=== PATIENT | female | born 1950 | race American Indian/Alaskan Native ===

== ENCOUNTER 2017-11-08 08:19 | Outpatient (CLI) | payer MEDICARE ==
--- NOTE | 2017-11-08 11:18 | Mammography Report ---
BONE DEXA:11/08/17 08:19:00 CLINICAL: Postmenopausal. No comparison. TECHNIQUE: Two site bone DEXA performed on an Hologic scanner. FINDINGS: The average BMD of the lumbar spine L1-L4 is 0.982g/cm squared with a T-score of -0.6 and a Z-score of +1.2. The average BMD of the left hip is 0.952g/cm squared with a T-score of +0.1 and a Z-score of +1.1. IMPRESSION: WHO classification: Normal with average fracture risk based on spine and left hip measurements. RECOMMENDATION: Clinical correlation and routine screening. DEFINITIONS: BMD = Bone Mineral Density T-score = BMD related to mean peak bone mass of young adult (mean expressed in Standard Deviation) Z-score = Age matched BMD expressed in SD World Health Organization (WHO) Diagnostic Criteria Normal T-score > -1 SD Osteopenia T-score between -1 and -2.4 SD Osteoporosis T-score -2.5 SD or below NOTE: BMD is not the only risk factor for fracture. One should also consider factors such as the patient's age, risk of falling, previous osteoporotic fracture, family history of osteoporotic fractures, current smoker, and low body weight. Z-scores are not calculated if >80 years of age.
--- NOTE | 2017-11-08 13:25 | Mammography Report ---
Bilateral mammogram: No previous studies available. CAD study utilized. Findings: Predominance of adipose tissue bilaterally. Circumscribed 4 mm density 6:00 position left breast. Focal asymmetry upper outer anterior right breast. No microcalcifications. Benign axilla. Impression: Circumscribed density left breast. Focal ill-defined asymmetry upper outer anterior right breast. Comparison with previous studies is recommended. If previous studies are not available, spot mag and if necessary, sonographic examination advised.
== END 2017-11-08 08:20 | disposition home or self-care (01) ==
LOC: MAMMO 08:19
PROVIDERS: ATTEND Advanced Practice Midwife
DX: Z12.31 Encounter for screening mammogram for malignant neoplasm of breast (principal); N95.8 Other specified menopausal and perimenopausal disorders; Z78.0 Asymptomatic menopausal state
CPT/HCPCS: 77067; 77080

== ENCOUNTER 2018-01-29 07:39 | Emergency (ER) | payer MEDICARE ==
[2018-01-29 08:45] LABS: Basophils # (Auto) 0.1 K/mm3 (0.0-0.1); Basophils % (Auto) 0.9 % (0.0-1.8); Eosinophils % (Auto) 0.7 % (0.0-4.3); Hematocrit 35.2 % (30.3-42.9); Hemoglobin 11.6 gm/dl (10.1-14.3); Lymphocytes # (Auto) 3.1 K/mm3 (1.2-5.4); Lymphocytes % (Auto) 41.2 % (13.4-35.0); Mean Corpuscular HGB Conc 33 % (30-34); Mean Corpuscular Hemoglobin 31 pg (28-32); Mean Corpuscular Volume 93 fl (79-97); Monocytes # (Auto) 0.8 K/mm3 (0.0-0.8); Monocytes % (Auto) 11.2 % (0.0-7.3); Platelet Count 198 K/mm3 (140-440); Red Blood Count 3.77 M/mm3 (3.65-5.03); Red Cell Distribution Width 14.1 % (13.2-15.2)
[2018-01-29] MEDS ORDERED: NACL 0.9% 500 ML 500 ML IV ONE (08:53)
[2018-01-29] MEDS ORDERED: DILAUDID IV ONE (08:53)
[2018-01-29 08:55] LABS: BUN/Creatinine Ratio 23; Blood Urea Nitrogen 18 mg/dL (7-17); Calcium 9.6 mg/dL (8.4-10.2); Hemolysis Index 9
--- NOTE | 2018-01-29 08:55 | Emergency Department Report ---
ED General Adult HPI - General Chief complaint: Chest Pain Stated complaint: LFT ARM PAIN Time Seen by Provider: 01/29/18 08:25 Source: patient, family, EMS (ems notes not available at time of chart dictation), RN notes reviewed Mode of arrival: Wheelchair Limitations: No Limitations - History of Present Illness Initial comments: This is a 67-year-old female who is not known to this provider previously. Her primary care doctor is Dr. Otero. She reports a history of chronic left arm pain for the past 3 months, diabetes. Patient reports being admitted to [facility] 9 weeks ago for chest pain. She also reports that 3 weeks ago, she was admitted to [facility] in [place] for chest pain, and had a cardiac catheterization which was reported as negative. The patient presents to the ER today with a primary complaint of nontraumatic left arm pain. The arm pain is burning and sharp, and in the left elbow and in the left wrist. It increases with palpation and decreases with rest. She reports her primary care doctor has tried numerous medications, including steroids, Tylenol 3 and NSAIDs. Her pain has not improved. She reports it is typically in her left wrist and left elbow. It's also a little bit in her left shoulder. She reports that she had to do a lot of heavy lifting recently for a sick family member, and subsequently developed anterior chest wall pain. She also endorses anterior chest wall pain which has been present for weeks, and it does not radiate to the back, arms or neck. To me she endorses that her chest pain is improved, and she denies new or different shortness of breath as well as vomiting, diaphoresis. She also endorses intermittent right lower quadrant and right-sided inguinal pain, which is improved, but present for weeks. She denies focal extremity weakness, numbness, bladder or bowel retention or incontinence as well as ataxia. She also feels like she's been having a pop in her elbow. -: Gradual Location: chest, abdomen, right, upper extremity Quality: aching Consistency: intermittent Improves with: rest Worsens with: movement Associated Symptoms: chest pain, malaise, shortness of breath, weakness. denies : cough, diaphoresis, fever/chills, headaches, loss of appetite, nausea/vomiting , rash, seizure, syncope - Related Data Previous Rx's Medication Instructions Recorded Last Taken Type Acetaminophen [Tylenol Arthritis] 650 mg PO Q6HR PRN #30 tablet.er 01/29/18 Unknown Rx Ibuprofen [Motrin] 600 mg PO Q8H PRN #30 tablet 01/29/18 Unknown Rx oxyCODONE [Roxicodone] 5 mg PO Q6HR PRN #20 tablet 01/29/18 Unknown Rx Allergies Allergy/AdvReac Type Severity Reaction Status Date / Time Penicillins AdvReac Hives Unverified 11/08/17 08:19 ED Review of Systems ROS: Stated complaint: LFT ARM PAIN Other details as noted in HPI Constitutional: malaise Eyes: denies: eye discharge ENT: denies: congestion Cardiovascular: chest pain Gastrointestinal: abdominal pain Genitourinary: denies: dysuria Musculoskeletal: arthralgia, myalgia Skin: denies: lesions Neurological: weakness Psychiatric: anxiety ED Past Medical Hx - Past Medical History Previous Medical History?: Yes Hx Hypertension: Yes Hx Diabetes: Yes (pre dm) - Surgical History Past Surgical History?: Yes Additional Surgical History: x 1 - Social History Smoking Status: Never Smoker Substance Use Type: None - Medications Home Medications: Home Medications Medication Instructions Recorded Confirmed Last Taken Type Acetaminophen [Tylenol Arthritis] 650 mg PO Q6HR PRN #30 tablet.er 01/29/18 Unknown Rx Ibuprofen [Motrin] 600 mg PO Q8H PRN #30 tablet 01/29/18 Unknown Rx oxyCODONE [Roxicodone] 5 mg PO Q6HR PRN #20 tablet 01/29/18 Unknown Rx ED Physical Exam - General Limitations: Physical Limitation General appearance: alert, anxious - Head Head exam: Present: atraumatic, normocephalic - Eye Eye exam: Present: normal appearance, EOMI. Absent: nystagmus - ENT ENT exam: Present: normal exam, normal orophraynx, mucous membranes moist, normal external ear exam - Neck Neck exam: Present: normal inspection, full ROM - Respiratory Respiratory exam: Present: normal lung sounds bilaterally, chest wall tenderness , other (escorted by nurse Julissa Hedrick). Absent: respiratory distress - Cardiovascular Cardiovascular Exam: Present: regular rate, normal rhythm, normal heart sounds. Absent: bradycardia, tachycardia, irregular rhythm, systolic murmur, diastolic murmur, rubs, gallop - GI/Abdominal GI/Abdominal exam: Present: soft, normal bowel sounds. Absent: distended, tenderness, guarding, rebound, rigid, pulsatile mass - Extremities Exam Extremities exam: Present: normal inspection, tenderness, normal capillary refill, other (2+ pulses noted in the bilateral upper, lower extremities. There is reproducible bony tenderness of the left shoulder, left elbow, left olecranon, and left wrist. Compartments soft, there is no redness, pus, streaking. Thumb opposition, finger abduction, adduction, finger extension, flexion intact in the bilateral upper extremities. Range of motion limited in the left elbow and left shoulder secondary to pain. Compartments soft.). Absent: pedal edema, joint swelling, calf tenderness - Back Exam Back exam: Present: normal inspection, full ROM. Absent: tenderness, CVA tenderness (R), paraspinal tenderness, vertebral tenderness - Neurological Exam Neurological exam: Present: alert, oriented X3, CN II-XII intact, normal gait, other (Extraocular movements intact. Tongue midline. No facial droop. Facial sensation intact to light touch in the V1, V2, V3 distribution bilaterally. 5 and 5 strength in 4 extremities.. Sensation is intact to light touch in 4 extremities.). Absent: motor sensory deficit - Psychiatric Psychiatric exam: Present: anxious - Skin Skin exam: Present: warm, dry, intact, normal color. Absent: rash ED Course Vital Signs 01/29/18 01/29/18 01/29/18 07:56 08:10 08:16 Temperature 97.6 F 98.1 F Pulse Rate 97 H 84 89 Respiratory 18 14 11 L Rate Blood Pressure 167/84 167/77 Blood Pressure 137/79 [Right] O2 Sat by Pulse 97 98 Oximetry 01/29/18 01/29/18 01/29/18 08:30 08:46 09:15 Temperature Pulse Rate 80 100 H Respiratory 16 19 18 Rate Blood Pressure 167/77 167/77 Blood Pressure [Right] O2 Sat by Pulse 98 Oximetry 01/29/18 09:45 Temperature Pulse Rate Respiratory 18 Rate Blood Pressure Blood Pressure [Right] O2 Sat by Pulse Oximetry - Reevaluation(s) Reevaluation #1: 01/29/18 10:35 Differential diagnosis, including without limited to: Arthritis, rheumatoid arthritis, fibromyalgia, acute coronary syndrome, pneumonia, pulmonary embolus, intra-abdominal infection, urinary tract infection, constipation Assessment and plan: 67-year-old female with a primary complaint of nontraumatic left arm pain. It has been present for 3 months. It is reproducible. Compartments are soft, there is no redness, pus, streaking, distal range of motion intact in the fingers, and x-ray of the left elbow and left wrist show no obvious fracture or dislocation. Patient by history is low risk by NESTOR score, heart score, given weeks of symptoms, as well as a recent reported negative cardiac catheterization, we are attempting to obtain patient's catheterization report from [facility]. Patient's pain was treated initially with hydromorphone which she indicates did not improve her pain. Right groin exam is unremarkable, with no pulsatile mass, no hematoma, escorted by nurse Julissa Bennett Patient will be given a sub-dissociative dose of ketamine, we will obtain CT scan of her chest given her positive d-dimer, CT scan of her abdomen pelvis and reassess. Troponin #2 is pending, EKG #2 is pending. Reevaluation #2: 01/29/18 10:41 Cardiac catheterization report is reviewed. It was performed on 12/25/2017. The left main coronary artery had distal 20-30% luminal irregularities. There was no significant occlusive disease noted in the right coronary artery. "No critical coronary artery occlusive disease." Recommended aggressive medical management, and from a cardiac standpoint, no further cardiac workup. Leather Scraper recommended a noncardiac chest pain workup. Reevaluation #3: 01/29/18 12:16 EKG is unremarkable 2. Troponin negative 2. CT scan of the chest, abdomen, pelvis negative for acute disease. X-ray of the elbow and left humerus demonstrated pathologic left-sided distal humerus fracture. Patient required ketamine, 25 mg IV 2 for pain control. She reports this greatly improved her pain. Patient will be placed in a posterior splint, placed in a left arm sling , and she will be given referral to outpatient orthopedics. 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 ED Medical Decision Making - Lab Data Result diagrams: 01/29/18 08:24 01/29/18 08:21 Vital Signs 01/29/18 01/29/18 01/29/18 07:56 08:10 08:16 Temperature 97.6 F 98.1 F Pulse Rate 97 H 84 89 Respiratory 18 14 11 L Rate Blood Pressure 167/84 167/77 Blood Pressure 137/79 [Right] O2 Sat by Pulse 97 98 Oximetry 01/29/18 01/29/18 01/29/18 08:30 08:46 09:15 Temperature Pulse Rate 80 100 H Respiratory 16 19 18 Rate Blood Pressure 167/77 167/77 Blood Pressure [Right] O2 Sat by Pulse 98 Oximetry Lab Results 01/29/18 01/29/18 01/29/18 Range/Units 08:21 08:24 09:05 WBC 7.4 (4.5-11.0) K/mm3 RBC 3.77 (3.65-5.03) M/mm3 Hgb 11.6 (10.1-14.3) gm/dl Hct 35.2 (30.3-42.9) % MCV 93 (79-97) fl MCH 31 (28-32) pg MCHC 33 (30-34) % RDW 14.1 (13.2-15.2) % Plt Count 198 (140-440) K/mm3 Lymph % (Auto) 41.2 H (13.4-35.0) % Cataño % (Auto) 11.2 H (0.0-7.3) % Eos % (Auto) 0.7 (0.0-4.3) % Baso % (Auto) 0.9 (0.0-1.8) % Lymph # 3.1 (1.2-5.4) K/mm3 Cataño # 0.8 (0.0-0.8) K/mm3 Eos # 0.0 (0.0-0.4) K/mm3 Baso # 0.1 (0.0-0.1) K/mm3 Seg Neutrophils % 46.0 (40.0-70.0) % Seg Neutrophils # 3.4 (1.8-7.7) K/mm3 PT 13.2 (12.2-14.9) Sec. INR 0.95 (0.87-1.13) APTT 20.0 L (24.2-36.6) Sec. D-Dimer 1309.25 H (0-234) ng/mlDDU Sodium 138 (137-145) mmol/L Potassium 4.4 (3.6-5.0) mmol/L Chloride 100.4 (98-107) mmol/L Carbon Dioxide 23 (22-30) mmol/L Anion Gap 19 mmol/L BUN 18 H (7-17) mg/dL Creatinine 0.8 (0.7-1.2) mg/dL Estimated GFR > 60 ml/min BUN/Creatinine Ratio 23 % Glucose 121 H (65-100) mg/dL Calcium 9.6 (8.4-10.2) mg/dL Magnesium (1.7-2.3) mg/dL Total Bilirubin (0.1-1.2) mg/dL Direct Bilirubin (0-0.2) mg/dL Indirect Bilirubin mg/dL AST (5-40) units/L ALT (7-56) units/L Alkaline Phosphatase (35-129) units/L Total Creatine Kinase (30-135) units/L Troponin T < 0.010 (0.00-0.029) ng/mL Total Protein (6.3-8.2) g/dL Albumin (3.9-5) g/dL Albumin/Globulin Ratio % Lipase (13-60) units/L //18 Range/Units 09:05 WBC (4.5-11.0) K/mm3 RBC (3.65-5.03) M/mm3 Hgb (10.1-14.3) gm/dl Hct (30.3-42.9) % MCV (79-97) fl MCH (28-32) pg MCHC (30-34) % RDW (13.2-15.2) % Plt Count (140-440) K/mm3 Lymph % (Auto) (13.4-35.0) % Cataño % (Auto) (0.0-7.3) % Eos % (Auto) (0.0-4.3) % Baso % (Auto) (0.0-1.8) % Lymph # (1.2-5.4) K/mm3 Cata[place] # (0.0-0.8) K/mm3 Eos # (0.0-0.4) K/mm3 Baso # (0.0-0.1) K/mm3 Seg Neutrophils % (40.0-70.0) % Seg Neutrophils # (1.8-7.7) K/mm3 PT (12.2-14.9) Sec. INR (0.87-1.13) APTT (24.2-36.6) Sec. D-Dimer (0-234) ng/mlDDU Sodium (137-145) mmol/L Potassium (3.6-5.0) mmol/L Chloride (98-107) mmol/L Carbon Dioxide (22-30) mmol/L Anion Gap mmol/L BUN (7-17) mg/dL Creatinine (0.7-1.2) mg/dL Estimated GFR ml/min BUN/Creatinine Ratio % Glucose (65-100) mg/dL Calcium (8.4-10.2) mg/dL Magnesium 1.90 (1.7-2.3) mg/dL Total Bilirubin 0.20 (0.1-1.2) mg/dL Direct Bilirubin < 0.2 (0-0.2) mg/dL Indirect Bilirubin 0.0 mg/dL AST 25 (5-40) units/L ALT 19 (7-56) units/L Alkaline Phosphatase 51 (35-129) units/L Total Creatine Kinase 36 (30-135) units/L Troponin T (0.00-0.029) ng/mL Total Protein 8.5 H (6.3-8.2) g/dL Albumin 4.0 (3.9-5) g/dL Albumin/Globulin Ratio 0.9 % Lipase 57 (13-60) units/L - EKG Data -: EKG Interpreted by Me - EKG Data When compared to previous EKG there are: previous EKG unavailable 01/29/18 10:38 Sinus, 72 bpm, normal intervals, normal axis, poor R wave progression, abnormal EKG, not morphologically consistent with ST elevation myocardial infarction. - Radiology Data Radiology results: report reviewed, image reviewed interpreted by me: X-ray of the chest is negative. X-ray of the left elbow was negative. X-ray of the left wrist is negative. Critical care attestation.: If time is entered above; I have spent that time in minutes in the direct care of this critically ill patient, excluding procedure time. ED Disposition Clinical Impression: Chest pain, Abdominal pain Fracture, humerus Qualifiers: Encounter type: initial encounter Humerus Location: distal Fracture type: closed Fracture alignment: displaced Disposition: TO HOME OR SELFCARE Is pt being admited?: No Does the pt Need Aspirin: No Condition: Good Instructions: Chest Pain (ED), Arm Fracture in Adults (ED) Additional Instructions: Keep the left arm in a sling and splint. Follow up with an orthopedic surgeon within the next week. Local orthopedic surgeons including Dr. Noel Morales and the resurgeons group. X-ray suggested pathologic fracture of the left humerus, and nonspecific bony abnormality. It is very important to follow up with outpatient orthopedics to exclude orthopedic cancer, tumor, malignancy. Take pain medications as needed/ directed. Do not drive or consume alcohol or make important decisions when taking the oxycodone. Follow-up with the primary care doctor or any of the listed cardiology groups for the chest pain within the next week. Follow-up with your primary care doctor for your abdominal pain within the next week. Return to the ER right away with you pain, worsened pain, migration of pain, fevers, chills, lethargy, irritability, projectile vomiting, change in mental status, confusion, and ability to tolerate liquid feeds. Referrals: PRIMARY CAREMD [Primary Care Provider] - 3-5 Days [facility] [Provider Group] - 3-5 Days [facility] [Provider Group] - 3-5 Days [facility] [Provider Group] - 3-5 Days NOEL MORALES MD [Staff Physician] - 3-5 Days
[2018-01-29 09:35] LABS: Alanine Aminotransferase 19 units/L (7-56); Lipase 57 units/L (13-60)
[2018-01-29 09:45] LABS: INR 0.95 (0.87-1.13)
[2018-01-29 09:50] LABS: Bilirubin,Direct < 0.2 mg/dL (0-0.2)
[2018-01-29] MEDS ORDERED: KETALAR IV ONE (11:00)
[2018-01-29 11:04] LABS: Bilirubin,Urine NEG (Negative); Blood,Urine NEG (Negative); Color,Urine Yellow (Yellow); Protein,Urine <15 mg/dL mg/dL (Negative); Urobilinogen,Urine < 2.0 mg/dL (<2.0)
--- NOTE | 2018-01-29 11:07 | Cat Scan Report ---
CTA CHEST: HISTORY: chest pain. COMPARISON: none. TECHNIQUE: Helical CT in 1.25mm intervals following IV contrast. Pulmonary embolus protocol. Sagittal and coronal reformatted images. FINDINGS: Contrast bolus is satisfactory. No pulmonary embolus is identified. Thyroid gland: Normal. Tracheobronchial tree: Normal. Esophagus: Normal. Heart: Normal. Pericardium: Normal. Mediastinum: Normal. Lung Berry: Minor discoid atelectasis is identified in the left lower lobe. Otherwise, the lungs are clear. Pleural Spaces: Normal. Musculoskeletal: Normal. IMPRESSION: No evidence for pulmonary embolus. Unremarkable CT chest with contrast.
--- NOTE | 2018-01-29 11:10 | Cat Scan Report ---
CT ABDOMEN PELVIS WITH CONTRAST: HISTORY: abdominal pain. COMPARISON: none. TECHNIQUE: Helical CT in 1.25mm intervals following IV contrast. Sagittal and coronal reconstructions. FINDINGS: Liver: The liver is normal size and contour. Mild diffuse fatty change throughout the liver as noted. No focal liver mass. Biliary system: Normal. Pancreas: Normal. Spleen: Normal. Kidneys/ureters/bladder: Within normal limits. A 1 cm simple cyst in the inferior left kidney is noted. Adrenal glands: Normal. Aorta: Normal. Intestines: Within normal limits given no oral contrast was administered. Appendix: Normal. Pelvic viscera: Normal. Ascites: None. Adenopathy: None. Musculoskeletal: Normal. IMPRESSION: No acute process is identified in the abdomen or pelvis. Fatty infiltration of the liver. Simple left renal cyst.
--- NOTE | 2018-01-29 11:12 | XRay Report ---
LEFT ELBOW, 2 views: History: left elbow pain. 2 nonstandard views of the left elbow are presented. No acute osseous findings or joint pathology is demonstrated. No significant soft tissue abnormality is seen. IMPRESSION: Unremarkable left elbow.
--- NOTE | 2018-01-29 11:12 | XRay Report ---
AP CHEST: HISTORY: chest pain AP view of the chest demonstrates a normal mediastinal and cardiac contour with clear lungs and normal bony and soft tissue structures. Minor discoid atelectasis at the left lung base is noted. IMPRESSION: Unremarkable AP chest.
--- NOTE | 2018-01-29 11:14 | XRay Report ---
LEFT WRIST, 2 views: HISTORY: Pain. Routine views demonstrate the carpal bones to be well mineralized with well preserved bony mineralization and interosseous joint spaces. The carpal and adjacent articular bones have normal contours. The surrounding soft tissues are unremarkable. Small ossicle adjacent to the distal tip of the ulnar styloid is noted. IMPRESSION: Unremarkable left wrist.
[2018-01-29] MEDS ORDERED: KETAMINE HCL IV ONE (11:20)
--- NOTE | 2018-01-29 12:51 | XRay Report ---
LEFT HUMERUS, 2 views: History: Left arm pain, fracture Findings: There is an approximate 6 cm permeative bone lesion in the distal shaft of the left humerus. A mildly displaced and angulated fracture is identified through this lesion consistent with a pathologic fracture. The remainder of the left humerus is intact. Normal articulation at the left shoulder and elbow. IMPRESSION: Pathologic fracture of the left humerus as described.
[2018-01-29 14:56] VITALS: BP 128/65
== END 2018-01-29 14:20 | disposition home or self-care (01) ==
LOC: ED 07:39
DX: M84.422A Pathological fracture, left humerus, initial encounter for fracture (principal); R07.9 Chest pain, unspecified; R10.9 Unspecified abdominal pain; I10 Essential (primary) hypertension; E11.9 Type 2 diabetes mellitus without complications; Z88.0 Allergy status to penicillin; Z79.899 Other long term (current) drug therapy
CPT/HCPCS: 29105; 36415; 71045; 71275; 73060; 73070; 73100; 74177; 80048; 80074; 81001; 82550; 83690; 83735; 84484; 85025; 85379; 85610; 85730; 93005; 93010; 96374; 99285; J1170; J7040; Q9967